=== PATIENT | male | born 1950 | race Caucasian/White ===

== ENCOUNTER 2023-11-15 12:41 | Emergency (ER) | payer MEDICARE ==
[~2023-11-15] VITALS: Ht 177.8 cm; Wt 103.4 kg
[2023-11-15] MEDS ORDERED: LIPITOR40 MG PO (12:59)
[2023-11-15] MEDS ORDERED: COZAAR25 MG PO (12:59)
[2023-11-15 13:09] LABS: BASOPHILS 0.3 % (0-2); EOSINOPHILS 1.7 % (0-6); HEMATOCRIT 45.3 % (35.0-50.0); HEMOGLOBIN 15.4 g/dL (12.0-18.0); LYMPHOCYTES 20.6 % (24-44); MCH 30.6 (27-36); MCHC 34.1 g/dl (30-36); MCV 89.9 fl (81-99); MONOCYTES 10.2 % (0-12); NEUTROPHILS 67.2 % (39-80); PLATELET COUNT 229 K/uL (140-440); RBC 5.04 M/ul (4.3-5.7); RDW 13.9 (10.5-15.0)
[2023-11-15 13:17] LABS: INR 0.98 (0.80-1.30); PROTIME 12.6 Sec (11.2-14.2)
[2023-11-15 13:19] LABS: PARTIAL THROMBOPLASTIN TIME 30.4 Sec (22.9-41.3)
[2023-11-15 13:24] LABS: ALBUMIN 3.6 g/dL (3.4-5.0); ALBUMIN/GLOBULIN RATIO 1.03 (1.1-2.4); BILIRUBIN, TOTAL 0.4 ng/dL (0.2-1.0); BUN/CREATININE RATIO 25.47 (6.0-28.6); CALCIUM 8.8 mg/dL (8.5-10.1); CREATININE, SERUM 1.06 mg/dL (0.70-1.30); PROTEIN, TOTAL 7.1 g/dL (6.4-8.2)
[2023-11-15 16:55] VITALS: BP 123/99
--- NOTE | 2023-11-15 21:39 | EKG ---
[facility] [address] [facility] [place] [address] Signed Normal sinus rhythm Normal ECG No previous ECGs available Confirmed by Kelly Bethea MD () on 11/15/2023 9:40:23 PM Electronically Signed By: KELLY BETHEA MD 11/15/23 2139 PATIENT NAME: GUSTAVO HALL Electrocardiogram DATE OF : 48 PHYSICIAN: KELLY BETHEA MD REPORT #: [id number] REPORT IS CONFIDENTIAL AND NOT TO BE RELEASED WITHOUT AUTHORIZATION
== END 2023-11-15 17:03 | disposition home or self-care (01) ==
LOC: ED 12:41
PROVIDERS: Emergency Medicine
DX: M25.562 Pain in left knee (principal); R53.1 Weakness; Z86.73 Personal history of transient ischemic attack (TIA), and cerebral infarction without residual deficits; Z79.899 Other long term (current) drug therapy
CPT/HCPCS: 36415; 70450; 70496; 70498; 70551; 71045; 73560; 80053; 84484; 85025; 85610; 85730; 93005; 93010; 99285-25; Q9967